=== PATIENT | female | born 1985 | race Caucasian/White ===

== ENCOUNTER 2023-12-05 16:57 | Emergency (ER) | payer BC, SELFPAY ==
--- NOTE | 2023-12-05 17:14 | ED.FEMALEGU ---
HPI - Female Genitourinary General Chief complaint: Urogenital-Female Stated complaint: urinary issue Source: patient and RN notes reviewed Mode of arrival: ambulatory Limitations: no limitations History of Present Illness HPI Narrative: 38-year-old female presented for complaint of burning with urination, frequency, urgency and blood in urine over the past 5 days. She states at the onset she [place], where she was misdiagnosed and was not treated for her UTI at that time but was given several bags of IV fluids to treat her hyperglycemia. She reports improvement in symptoms for few days, but they returned yesterday with pain radiating to low back. Denies nausea, vomiting, abdominal pain, flank pain, constipation, diarrhea, fevers or chills. Denies concern for std or , LMP 2 weeks ago. Taking cranberry, AZO, and increased water. Hx chronic pancreatitis, kidney stones, diabetes. Related Data Home Medications Medication Instructions Recorded Confirmed Creon 1 cap PO BID 12/05/23 12/05/23 insulin syringe-needle U-100 1 mL 12/05/23 12/05/23 29 gauge x 1/2 (TRUEplus Insulin) [id number] 3 cap PO QID 12/05/23 12/05/23 40,000-126,000-168,000 unit capsule, delay rel (Zenpep) olanzapine 10 mg tablet 10 mg PO DAILY 12/05/23 12/05/23 quetiapine 50 mg tablet,extended 50 mg PO DAILY 12/05/23 12/05/23 release 24 hr Allergies Allergy/AdvReac Type Severity Reaction Status Date / Time No Known Allergies Allergy Verified 12/05/23 17:39 Review of Systems Review of Systems: CONSTITUTIONAL: Denies body aches, fever, chills, or sweats. CARDIOVASCULAR: Denies chest pain, palpitations, or edema. RESPIRATORY: Denies cough or dyspnea. GASTROINTESTINAL: Denies abdominal pain, nausea, vomiting, or diarrhea. GENITOURINARY: Reports dysuria, frequency, urgency, hematuria, flank pain SKIN: Denies rash, itching, or wounds. MUSCULOSKELETAL: Denies myalgia. [facility] Past Medical History Medical History (Updated 12/05/23 @ 17:45 by Arely Watts, MELONIE) Diabetes IBS (irritable bowel syndrome) Kidney stone Pancreatitis Comments At time of signature, I have reviewed and agree with nursing past medical, surgical, social and family history unless otherwise noted. Please see nursing chart for further information. There is no relevant family history pertinent to the presenting complaint Exam Narrative: GENERAL: Well-appearing and in no acute distress. ENT: Mucous membranes pink and moist. CHEST: No respiratory distress. Clear to auscultation. HEART: Regular rate and rhythm. ABDOMEN: Soft, nondistended, normal active bowel sounds. Mild bilateral lower quadrant tenderness with palpation. No CVA tenderness. SKIN: Warm, dry, no rash. NEURO: No focal deficits. Alert and oriented x3. Gait steady. PSYCH: Normal affect. No signs of depression or anxiety. Course Course Emergency Course: Patient is aware of diagnosis, understands and agrees to treatment plan. Anticipatory guidance given. Patient agrees to follow-up as directed and is aware of reasons to seek care at the emergency department. Portions of this record may have been created with voice recognition software Level of Care: Express Care Visit Vital Signs Vital signs: Reviewed MDM - Female Genitourinary MDM Narrative Medical decision making narrative: results of urine dip reviewed with patient. Discussed physical exam findings. Advised supportive measures and signs/symptoms to go to the ER. Pt is appropriate for outpt treatment and f/u. Differential Diagnosis Differential diagnosis: Likely urinary tract infection and cystitis Discharge Plan Discharge Clinical Impression: Dysuria Patient Disposition: Home, Self-Care Condition: Stable Instructions: Antibiotic Form Additional Instructions: Take the antibiotic as prescribed The urine will be sent of for a culture to identify
[2023-12-05 17:17] VITALS: BP 137/85; PULSE 110; RESP 16; TEMP 37.1; O2SAT 98
[2023-12-05 17:27] LABS: EDUAAPPEAR Cloudy; EDUABILI Negative; EDUABLOOD 2+; EDUACOLOR1 Orange; EDUAGLUCOSE 2+; EDUAKETONE Negative; EDUALEUKO Negative; EDUANITRATE Positive; EDUAPROTEIN Trace; EDUAUROBILI 0.2
== END 2023-12-05 17:46 | disposition home or self-care (01) ==
PROVIDERS: Emergency Provider Nurse Practitioner Family
DX: R30.0 Dysuria (principal); E11.9 Type 2 diabetes mellitus without complications; Z79.4 Long term (current) use of insulin
CPT/HCPCS: 81003; 87077; 87086; 87088; 87186; 99203; G0463